=== PATIENT | male | born 1950 | race Caucasian/White ===

== ENCOUNTER 2016-07-22 11:25 | Inpatient (IN) | payer MEDICARE ==
[~2016-07-22] VITALS: Ht 177.8 cm; Wt 115.9 kg
--- NOTE | ~2016-07-22 | CON ---
PATIENT'S NAME: JESSICA DELAGDO [facility] AGE: 66 Y [address] ROOM: [address] [address] LOCATION: [facility] ADMIT DATE: 07/22/2016 Consultation DISCHARGE DATE: FAMILY PHYSICIAN: Margy Tello PA-C ATTENDING PHYSICIAN: MARQUISE TURNER REFERRING PHYSICIAN: RAS GUZMÁN MD REASON FOR CONSULTATION: This is a 66-year-old male who is seen in consultation for evaluation of rectal bleeding. HISTORY OF PRESENTING ILLNESS: This 66-year-old male was admitted with a problem of syncopal episode as a result of which he passed out for half hour. He was brought to the hospital and apparently there was a question of possible choking spells. He has recurrent bouts of cough. It is not clear whether it was a seizure disorder at that time and now he is being treated for possible first-time seizure disorder. He is being seen by Cardiology and Neurology. His brain MRI was negative. Episode of lower GI bleeding was not noted by the patient; however, the nurses noted that there was bright red blood in the toilet and it colored the water in the commode and there were some clots. There was no evidence of melena. The patient denies any abdominal pain, nausea, vomiting, constipation, or diarrhea. He has a history of paroxysmal atrial fibrillation; and therefore he is on Pradaxa, which he had today. ADDITIONAL MEDICAL HISTORY: 1. Type 2 diabetes mellitus. 2. Paroxysmal atrial fibrillation, on Pradaxa. 3. Chronic kidney disease, stage 3 and 4. 4. Recent rotator cuff tear, status post repair on 07/18/2016. 5. Hypertension. 6. 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 FAMILY HISTORY: Stroke in his mother and diabetes mellitus and hypertension. SOCIAL HISTORY: The patient lives at home with his girlfriend. Denies any history of smoking, alcohol use, or drug use. PAST SURGICAL HISTORY: He had colonic resection about 1.5 feet from his left side after "twist in the colon," which I presume was due to volvulus. The record of which is not available. PATIENT'S NAME: JESSICA DELGADO [facility] AGE: 66 Y [address] ROOM: [address] [place], [place] [address] LOCATION: [facility] ADMIT DATE: 07/22/2016 Consultation DISCHARGE DATE: FAMILY PHYSICIAN: Margy Tello PA-C ATTENDING PHYSICIAN: MARQUISE TURNER REVIEW OF SYSTEMS: A 10-point review of system was negative other than mentioned above. PHYSICAL EXAMINATION: GENERAL: Reveals a well-developed, very pleasant male, who is not in acute discomfort. VITAL SIGNS: His blood pressure is 133/71, weight is 120 kg, pulse is 71 per minute, respiration is 12 per minute, and temperature is 98.4 degrees Fahrenheit. HEAD: Normocephalic, atraumatic. NECK: Supple. No lymphadenopathy. JVP is not elevated EYES: PERRLA. CARDIAC: Heart rate is irregular, decreased muffled heart sounds. No S3. Cardiovascular examination as per the Cardiology consultation. CHEST: Clear to palpation, percussion, and auscultation. ABDOMEN: Soft, is nontender, no hepatosplenomegaly. He is obese. Bowel sounds are audible. No ascites. NEUROLOGICAL: Examination briefly is intact and has been seen by the neurologist in detail. LABORATORY DATA: His lab data shows his hemoglobin is 11.9 g, hematocrit 36.9, platelets of 247,000, 58.8% neutrophils. INR is 1.3 and prothrombin time is 13.4. His electrolytes are normal. Glucose is 118, calcium is 7.7, BUN 35, creatinine 1.8, which has come down from 3.2 on July 22, alk phos is 39. AST, ALT are normal. CPK which was 2129, on admission is now 654, this was from rhabdomyolysis. His BNP is at 1550. Hemoglobin A1c is 8. His lumbosacral spine CT scan did not show any traumatic fracture; however, there is degenerative changes in L2-L5. ASSESSMENT: Mr. Delgado has multiple problems, gastrointestinal problem at hand is lower gastrointestinal bleeding, probably secondary to use of Pradaxa, which has been stopped after today's dose. He needs to be further evaluated by colonoscopy, which we will plan to do after 2 days of stopping Pradaxa schedule except Sunday and as much as he is not having massive bleeding therefore it should be done in a planned way for a possible therapeutic colonoscopy, where polypectomy may be possible after stopping Pradaxa for 2 days. He is being well-managed by Cardiology and Neurology and his kidney functions are improving, he is eating well, and has not had any choking episodes of seizures since his hospitalization. We will go ahead and plan for colonoscopy on Sunday. We appreciate sharing care of this patient. PATIENT'S NAME: JESSICA DELGADO [facility] AGE: 66 Y [address] ROOM: [place] [address] LOCATION: [facility] ADMIT DATE: 07/22/2016 Consultation DISCHARGE DATE: FAMILY PHYSICIAN: Margy Tello PA-C ATTENDING PHYSICIAN: MARQUISE TURNER MD DENISE PERKINS/cayla /[id number] CC: Margy Tello PA-C d: 07/26/16 0530 t: 07/29/16 1141, CONSULTATION REPORT
--- NOTE | ~2016-07-22 | HP ---
PATIENT'S NAME: JESSICA RIVAS [facility] AGE: 66 Y [address] ROOM: [place] [address] LOCATION: [facility] ADMIT DATE: 07/22/2016 History & Physical DISCHARGE DATE: FAMILY PHYSICIAN: PHYSICIAN, UNKNOWN ATTENDING PHYSICIAN: MARQUISE TURNER DATE OF SERVICE: CHIEF COMPLAINT: New onset of seizures and syncope. HISTORY OF PRESENT ILLNESS: This is a 66-year-old male, with history of diabetes, hypertension, and history of stroke in 2009 with residual right-sided weakness, who is transferred from an outside facility after he is found to have a seizure episode while in-house. It is reported that patient is not known to have clearly diagnosed seizure disorder. According to the staff at the facility, it was noted that patient had what appeared to be a seizure-like activity for a few minutes while having breakfast this morning and was obtunded for about 15 minutes following that. There were no reports of a witnessed tonic-clonic jerking type movement in relation to this. Upon my conversation with the patient today, he tells me that he does have frequent episodes of passing out without any clear signs of prodromal symptoms and the episode that occurred today is very much similar to what he has been experiencing for quite often for several months. The patient also reports that typically this syncopal episodes are exacerbated by a coughing spell which mostly occurs while he is having a meal. The patient, otherwise, denies any related chest pain, shortness of breath, lightheadedness, nausea, vomiting, or diaphoresis related to these spells. He does report a chronic cough that is nonproductive. Also denies any chest pain symptoms. PAST MEDICAL HISTORY: 1. Type 2 diabetes. 2. Paroxysmal atrial fibrillation, on Pradaxa. 3. Chronic kidney disease, stage 3 or 4. 4. Recent rotator cuff tear status post repair on 07/18/2016. 5. Hypertension. 6. History of CVA in 2009 with residual right-sided weakness in the lower extremity. FAMILY HISTORY: The patient has a history of stroke in his mother as well as diabetes and hypertension. SOCIAL HISTORY: PATIENT'S NAME: JESSICA RIVAS [facility] AGE: 66 Y [address] ROOM: [address] [place] [address] LOCATION: [facility] ADMIT DATE: 07/22/2016 History & Physical DISCHARGE DATE: FAMILY PHYSICIAN: PHYSICIAN, UNKNOWN ATTENDING PHYSICIAN: MARQUISE TURNER The patient lives at home with his girlfriend. Denies any history of smoking daily, alcohol use or drug use. REVIEW OF SYSTEMS: A 10-point review of systems was conducted and all were negative except as described in the HPI. PHYSICAL EXAMINATION: VITAL SIGNS: Blood pressure is 140/74, pulse is 78, respiratory rate 16, temperature 98.1, and saturating 95% on room air. GENERAL: The patient is awake, alert, and oriented x3 in no apparent distress. Obese appearing. HEENT: Moist mucous membranes. No scleral icterus. No conjunctival pallor noted. SKIN: Without rash or lesions. CHEST: Diminished breath sounds, but clear to auscultation bilaterally. HEART: S1 and S2. Regular rate and rhythm. ABDOMEN: Soft, nontender, and nondistended with positive bowel sounds. EXTREMITIES: Without edema. MUSCULOSKELETAL: Right shoulder in a sling from a recent rotator cuff repair surgery. LABORATORY DATA AND IMAGING STUDIES: Outside laboratories of significance: Creatinine of 3.2. Baseline appears to be around 3.0. CPK is 2735. ASSESSMENT AND PLAN: 1. Seizure, new onset. Apparently, a 15-minute long duration of postictal state to report from the nursing staff. No tonic-clonic type of movements witnessed, however. It appears that patient has a history of passing-out spells such as this frequently. In any case, the patient does require an evaluation for a new-onset seizure noting his prior history of strokes and does have risk factors for that. The patient has not had any seizure-like activities since 7:45 a.m. at this facility. The patient is awake, alert, and oriented x3 during my evaluation. I will ask for a Neurology consult for evaluation and recommendations. The patient has had a CT scan and MRI done at the outside facility as well and I am asking for reports for that. 2. Syncope, rule out cardiac etiology. The patient states that he does have frequent passing-out spells over the past several weeks including one time while he was driving in the past 6 months or so. The patient does have a history of atrial fibrillation and the risk factors for coronary artery disease. The patient sees a research group director from [place] and his last visit was in the beginning of June, this past month. We will consult Cardiology, also get a 2D echocardiogram for evaluation of his PATIENT'S NAME: JESSICA RIVAS [facility] AGE: 66 Y [address] ROOM: [address] [place], [place] [address] LOCATION: [facility] ADMIT DATE: 07/22/2016 History & Physical DISCHARGE DATE: FAMILY PHYSICIAN: PHYSICIAN, UNKNOWN ATTENDING PHYSICIAN: MARQUISE TURNER syncope noting his risk factors for a cardiac syncope. 3. Acute kidney injury on chronic kidney disease, stage 4. Baseline appears to be around 3.0, the creatinine is 3.2 from the last blood draw. We will recheck his renal function and monitor his input and output. Also avoid nephrotoxic drugs as well as any renally cleared medications as much as possible. 4. Paroxysmal atrial fibrillation. The patient is on Pradaxa as an outpatient. Noting his stage 4 kidney disease, we will hold Pradaxa and re-evaluate kidney function. It is likely that the patient's renal failure is to be a contraindication for the Pradaxa to be continued from here on as Pradaxa is not recommended in patients with glomerular filtration rate of less than 30. Coumadin would be a good alternative in this setting. We will await Cardiology input and re-evaluate. 5. Rhabdomyolysis. CPK of 2735. This could be adding to the acute on chronic kidney disease injury. We will give some IV fluids and follow CPK levels. 6. Deep venous thrombosis prophylaxis. We will use subcutaneous heparin while awaiting on a decision on what alternate agent to use for long-term anticoagulation. MD KEMAL SHIN/cayla /[id number] D: [id number] T: [id number] HISTORY & PHYSICAL
--- NOTE | ~2016-07-22 | ECHO ---
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 Summary The estimated left ventricular ejection fraction is 60%. Technically difficult study. Severe concentric left ventricular hypertrophy. Diastolic function indeterminate due to patient's arrhythmia. Mild tricuspid regurgitation by color Doppler. There is moderate pulmonary hypertension. The pulmonary pressure (RVSP) is 52 mmHg. Procedure Type of Study TTE procedure:2D Echocardiogram. Procedure Date Date: 07/22/2016 Start: 04:31 PM Study Location: Inpatient Portable Technical Quality: Adequate visualization Indications:Syncopal Episode. Additional Indications:Seizure Appropriate Use Criteria: 8 Patient Status: Routine HR: 83 bpm BP: 151/74 mmHg M-Mode/2D Measurements LV Diastolic Dimension: 4.62 cm LV Systolic Dimension: 3.28 cm LV Septum Diastolic: 1.98 cm LV PW Diastolic: 1.6 cm AO Root Dimension: 3.3 cm Cardiac Output: 5.26 l/min AV Cusp Separation: 2.1 cm RV Diastolic Dimension: 3.6 cm LA volume: 50 ml LVOT: 2.1 cm RV Base: 3.29 cm LVOT VTI: 18.3 cm RV Mid: 4.03 cm LV Stroke volume: 63.35 ml TAPSE: 2.25 cm TDI-S': 13.2 cm/s Doppler Measurements AV Peak Velocity: 0.91 m/s MV Peak E-Wave: 1.21 m/s AV Peak Gradient: 3.28 mmHg MV Peak A-Wave: 0.32 m/s AV Mean Gradient: 2 mmHg MV E/A Ratio: 3.73 LVOT Peak Velocity: 0.74 m/s MV P1/2t: 59 msec TR Gradient:41.99 mmHg PV Peak Velocity: 0.74 m/s Estimated RAP:5 mmHg PV Peak Gradient: 2.17 mmHg Estimated RVSP: 47 mmHg Estimated PASP: 46.99 mmHg E' Septal Velocity: 0.07 m/s A' Septal Velocity: 0.03 m/s E' Lateral Velocity: 0.13 m/s A' Lateral Velocity: 0.06 m/s Findings Left Ventricle Severe concentric left ventricular hypertrophy. Diastolic function indeterminate due to patient's arrhythmia. Right Ventricle Mildly dilated right ventricle with normal function. Left Atrium The left atrium is mildly dilated. There is no evidence of patent foramen ovale or atrial septal defect by color Doppler. Right Atrium The right atrium is mild to moderately dilated. IVC measures 2.41 cm with inspiratory collapse. Mitral Valve Trivial mitral regurgitation by color Doppler. Mild mitral annular calcification. Aortic Valve Difficult to visualize all three cusps of the aortic valve. Based on M-mode aortic valve appears to be trileaflet without the presence of an eccentric closure line. Tricuspid Valve Mild tricuspid regurgitation by color Doppler. There is moderate pulmonary hypertension. The pulmonary pressure (RVSP) is 52 mmHg. Pulmonic Valve Normal pulmonic valve structure and function. Pericardial Effusion No evidence of pericardial effusion. Miscellaneous The aortic root appears mildly dilated. The maximum diameter measures 3.3 cm. The ascending aorta appears mildly dilated. The maximum diameter measures 3.7 cm. Pleural Effusion No evidence of pleural effusion. Contractility Score LV regional wall motion:(0-Non visualized 1-Normal 2-Hypokinesis 3-Akinesis 4-Dyskinesis 5-Aneurysm) Signature dtt: Amado Adams dtd: 07/22/16 1631 Physician Self Edit
--- NOTE | ~2016-07-22 | DS ---
PATIENT'S NAME: JESSICA RIVAS [facility] AGE: 66 Y [address] ROOM: [place] [address] LOCATION: [facility] ADMIT DATE: 07/22/2016 Discharge Summary DISCHARGE DATE: 08/01/2016 FAMILY PHYSICIAN: Margy Tello PA-C ATTENDING PHYSICIAN: Bear Plaza PRINCIPAL DIAGNOSES: 1. Seizure. 2. Acute lower gastrointestinal bleed, resolved, with questionable mild proctitis, biopsy pending. 3. Chronic atrial fibrillation, on long-term anticoagulation. 4. Diabetes mellitus type 2, insulin dependent. 5. Essential hypertension. 6. Recent right rotator cuff repair. 7. 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 8. Obstructive sleep apnea, on CPAP. 9. History of a cerebrovascular accident. 10. Thoracic aortic aneurysm. HOSPITAL COURSE: Please reference any of the admitting data to the history and physical as dictated by Dr. Bear Plaza. Briefly, a 66-year-old male who had undergone a recent right rotator cuff repair, had been having coughing fits and tremoring, was taken to the emergency room where he was witnessed to have seizure-like activity followed by unresponsiveness, thought to be postictal state, was transferred to [facility] for further evaluation and management. He was admitted by our hospitalist and started on Keppra. An MRI of his brain was completed and did not show any new acute findings. Neurologic consultation was done with Dr. Hardeep Hernandez. An EEG was done that did not show any epileptic forms. Keppra was continued and no recurrence of seizures occurred while during his hospitalization. The patient also had been complaining of these coughing fits and they were observed while hospitalized. They were considered to be dry and persistent. His VALENTINE inhibitor was stopped on 07/24 and the coughing episodes ceased since. He did require a Cardiology consultation and evaluation given these episodes. Orthostatics were checked and they were mildly positive; however, felt stable. His blood pressure regimen was adjusted with the addition of Cozaar and adjusting the administration time of his current medications. His pressures were rather labile during his stay, sometimes ranging between 90s to 200s. He did require p.r.n. IV hydralazine, but had steadied out over the last 48 hours of his stay with systolic blood pressures consistently 120s to 150s and controlled heart rates. Further evaluation by echocardiogram showed no acute PATIENT'S NAME: JESSICA RIVAS [facility] AGE: 66 Y [address] ROOM: [id number] [place], [place] [address] LOCATION: [facility] ADMIT DATE: 07/22/2016 Discharge Summary DISCHARGE DATE: 08/01/2016 FAMILY PHYSICIAN: Margy Tello PA-C ATTENDING PHYSICIAN: Bear Plaza findings. He had a sustained left ventricular ejection fraction of 60% with severe concentric left ventricular hypertrophy and moderate pulmonary hypertension, but not thought to be the cause of his syncope. His chronic atrial fibrillation was rate controlled and observed on telemetry during his stay without complication. The patient was on long-term anticoagulation, Pradaxa, renally dosed. It was, however, noted that the patient had bloody stool on July 24. Hemoglobin was stable in the 11 and 12 range, but because of his need for long-term anticoagulation, it was elected to have a consultation with Gastroenterology. It was elected that he undergo a colonoscopy, which showed possible proctitis, biopsy was pending. He also showed external hemorrhoids, which was thought to be the cause of the bleeding. He was then resumed on his Pradaxa, renal dose, and tolerated it fine for the remainder of his stay. His hemoglobin stabilized, and no further concerns of bleeding. As for his diabetes, it was managed by an adjustment of his home regimen given his oral intake and activity. He was placed on an insulin:carb ratio and sliding scale with meals. He was started on Levemir twice a day and titrated accordingly. He was monitored on blood glucose checks before each meal and at bedtime. He did have a couple morning lows in the last 48 hours, in the 50s and 60s, but rebounded with oral intake and showed no complication. At the time of discharge, his evening dose of Levemir was cut back from 20 to 15 units. Diabetes Education also followed along and assisted in the plan and education of the patient for dietary and insulin needs. The patient initially presented with a creatinine of 3.2, suspected acute kidney injury. This was corrected with oral and IV fluid intake. His medications were renally dosed, and we saw his creatinine improved to 1.6 and 1.7 respectively for the remainder of his stay and this was felt to be around his baseline of CKD 3-4. He was given adequate pain control for his right shoulder with alternating Dilaudid and Ashmore. He was mobilized with physical and occupational therapy with restorative plan. DVT prophylaxis was maintained with Pradaxa. The short time that the patient was off his oral anticoagulation, we utilized pneumatic compression devices and early often mobilization. The patient had a portable chest x-ray that showed us concerns for widening of his mediastinum. The patient does have a known history of thoracic aortic aneurysm, in which he had undergone repair some previous time, but because of the concern, he underwent a CT scan of his chest without contrast and it did confirm that the widening was secondary to the ascending thoracic aorta measuring approximately 4.3 cm. He was also noted with ectasia and showed evidence of dissection at the descending point. Dr. Mccoy, the cardiothoracic surgeon, reviewed the films and all appeared chronic in nature. PATIENT'S NAME: JESSICA RIVAS [facility] AGE: 66 Y [address] ROOM: [address] [address] LOCATION: [facility] ADMIT DATE: 07/22/2016 Discharge Summary DISCHARGE DATE: 08/01/2016 FAMILY PHYSICIAN: Margy Tello PA-C ATTENDING PHYSICIAN: Bear Plaza He had no symptoms to be concerned of need of urgent repair or intervention. Recommendations for blood pressure control were made and a followup with Vascular Surgery as well as the need for a post-contrast CT to further evaluate the aneurysm/dissection in the near future. The patient was felt to be in good condition upon discharge, but it was elected that he continue to have restorative care and observation of his medical conditions. Care Management and Social Work arranged for transfer to swing bed by private auto on the day of discharge. LABORATORY DATA: Pertinent positives as described above. Cardiac enzymes showed an initial CPK of 2129 showing concerns for early rhabdomyolysis. This resolved in the next trended checks over the next 2 days with a CPK of 654. Remaining of cardiac markers were negative. CBC was unremarkable, most recent being on 07/30 showed a white blood cell count of 7.3, hemoglobin of 12.7, hematocrit of 39.4, and a platelet count of 308. Chemistry panel on 07/31 showed a glucose of 62, a BUN of 25, a creatinine of 1.7 down from 3.2 on admission, sodium 140, potassium 4.8, chloride of 107, a CO2 of 23, a calcium of 8.6, and a GFR of 40, up from 19. Hemoglobin A1c was 8.0. INR was 1.3. ANATOMIC PATHOLOGIC REPORTS: Rectal sigmoid biopsy is now final, showed reactive glandular change, negative for cryptitis and crypt abscess. RADIOLOGIC IMAGING: MRI of the brain on July 23 showed no acute findings. A chest x-ray on July 25 had showed concerns of mediastinal widening. A followup chest CT without contrast had shown the thoracic aortic aneurysm with vessel ectasia and evidence for dissection involving the thoracic and upper abdominal portions of the aorta, likely accounting for the mediastinal widening on the chest x-ray. Also on the CT scan, there was noted patchy areas of parenchymal opacity in the left and right lung apex. There was dependent atelectasis at the lung bases. There was cardiac enlargement with coronary calcifications. Past thoracic surgery with surgical clips noted. There was left nephrolithiasis. EEG showed evidence of underlying cortical dysfunction in the left hemisphere with mild to moderately severe diffuse encephalopathy. There was no epileptic form discharges or EEG seizures that were seen during the recording taken on July 24. DISCHARGE MEDICATIONS: 1. Amiodarone 200 mg p.o. every day. 2. To stop lisinopril. 3. Amlodipine 5 mg p.o. every day at 1700 hours, hold if systolic blood pressure is less than 110. 4. Carvedilol 25 mg p.o. twice daily, hold for systolic blood pressure less PATIENT'S NAME: JESSICA RIVAS [facility] AGE: 66 Y [address] ROOM: [id number] [place], [place] [address] LOCATION: [facility] ADMIT DATE: 07/22/2016 Discharge Summary DISCHARGE DATE: 08/01/2016 FAMILY PHYSICIAN: Margy Tello PA-C ATTENDING PHYSICIAN: Bear Plaza than 110 and heart rate less than 60. 5. Prozac 40 mg p.o. every day. 6. Gabapentin 300 mg p.o. 3 times daily. 7. Hydrochlorothiazide 25 mg p.o. every day, hold if systolic blood pressure is less than 110. 8. NovoLog insulin as per mild sliding scale subcutaneous before meals and at bedtime. 9. NovoLog insulin 1 unit per 15 g subcutaneous 3 times daily with meals, with a carb count of 1-15 g of carbohydrates consumed. 10. Levemir 20 units subcutaneous every a.m. 11. Levemir 15 units subcutaneous every p.m. 12. Keppra 500 mg p.o. every evening at 2100 hours. 13. Rosa M 60 mg p.o. every day. 14. Cozaar 50 mg p.o. every night at bedtime, to hold if systolic blood pressure is less than 110. 15. Singulair 10 mg p.o. every night at bedtime. 16. Protonix 40 mg p.o. every day. 17. Flomax 0.4 mg p.o. every day. 18. Ashmore 5/325 mg tablets, 1 tablet p.o. every 6 hours as needed for mild- to-moderate pain. Prescription written. 19. Glucagon 1 mg subcutaneous for hypoglycemia as needed per protocol. 20. Glucose 16 g p.o. as needed for hypoglycemia as per protocol. 21. Dilaudid 1 mg p.o. every 4 hours as needed for severe pain, . Prescription written. 22. MiraLAX 17 g p.o. every day as needed. 23. Afrin spray 2 sprays to each nostril every night at bedtime as needed. 24. TriCor 160 mg p.o. every day. 25. Pradaxa 150 mg p.o. twice daily. 26. Zantac 150 mg p.o. twice daily. DISCHARGE INSTRUCTIONS: The patient will be discharged to [facility] by private auto. The accepting physician is Dr. Chaney whom I spoke with on the phone. The patient will require multiple followups to include: 1. Orthopedics given the patient's most recent right rotator cuff repair within the next week. 2. His primary [employer] operations intelligence officer in [place] in the next 2 weeks. 3. His primary vascular physician in [place], the next time he is there. 4. Gastroenterology at [facility] in the next [address] Hernandez with Neurology at [facility] within the next 1 to 2 weeks. In addition to the vascular followup, our recommendations would be to have a CT scan of his chest with contrast in 1 month for further evaluation of his thoracic aortic aneurysm and to collaborate with Cardiothoracic Surgery based upon the findings of the CT scan. PATIENT'S NAME: JESSICA RIVAS [facility] AGE: 66 Y [address] ROOM: [id number] [place], [place] [address] LOCATION: [facility] ADMIT DATE: 07/22/2016 Discharge Summary DISCHARGE DATE: 08/01/2016 FAMILY PHYSICIAN: Margy Tello PA-C ATTENDING PHYSICIAN: Bear Plaza Diet should be as tolerated, diabetic. Weightbearing status is as tolerated or restrictions to the right shoulder as previously mentioned by Orthopedics, right sling to be in place at all times or unless otherwise advised. Occupational and Physical Therapy to continue to evaluate and treat the patient. He is to wear CPAP at night when he is asleep. Oxygen saturations should remain greater than 90% and if requiring oxygen to be placed as needed. Laboratory values should be followed. A complete blood count and complete metabolic panel to be taken within the next 3 to 4 days for evaluation as well as blood sugars before each meal and at bedtime and as needed as per their protocol. His rehab potential is good. His discharge potential is good. The patient and the family are well aware of his condition and prognosis. The above line of management was discussed with the patient and his spouse, all questions were answered with statements of understanding. Total time arranging discharge was greater than 30 minutes. Thank you for allowing us to participate in the care of this patient while at [facility]. MILLY MORA APRN, APRN FOR MD SÁNCHEZ BUTCHER/cayla /[id number] CC: MD Keyonna Jimenez MD [address] [place] [address] d: t: 08/02/16 1031, DISCHARGE SUMMARY
--- NOTE | ~2016-07-22 | CON ---
PATIENT'S NAME: JESSICA RIVAS [facility] AGE: 66 Y [address] ROOM: [place] [id number] LOCATION: [facility] ADMIT DATE: 07/22/2016 Consultation DISCHARGE DATE: FAMILY PHYSICIAN: Margy Tello PA-C ATTENDING PHYSICIAN: MARQUISE TURENR DATE OF CONSULTATION: 07/22/2016 REFERRING PHYSICIAN: RAS GUZMÁN MD REASON FOR CARDIOLOGY CONSULT: Syncope. HISTORY OF PRESENT ILLNESS: This is a 66-year-old male, who is transferred to [facility] after having a syncopal episode with subsequent seizure-like episode. He states he has been having increased episodes of syncope, specifically during meals and after a cough. From chart review, there was no witnessed tonic- colonic seizure type activity. He does have a previous history of hypertension, diabetes mellitus, and stroke in 2009 with some right-sided weakness. At the time of this consult, he is resting comfortably with no complaints of chest pain, shortness of breath, palpitations, nausea, vomiting, or diarrhea. PAST MEDICAL HISTORY: 1. Paroxysmal atrial fibrillation with long-term anticoagulation with Pradaxa. 2. Hypertension. 3. History of stroke in 2009 with residual right-sided weakness. 4. Diabetes mellitus type 2. 5. Chronic kidney disease. PAST SURGICAL HISTORY: 1. Right ankle surgery. 2. Right shoulder surgery. 3. Aneurysm repair in his chest. 4. Cholecystectomy. 5. Appendectomy. 6. Colon resection. 7. Right rotator cuff in June of 2016, due to this, his arm is currently in a sling. 8. Thyroid disease. FAMILY HISTORY: The patient's mother had a history of heart disease. He has a sister with a history of diabetes and hypertension. PATIENT'S NAME: JESSICA RIVAS [facility] AGE: 66 Y [address] ROOM: [address] [address] LOCATION: [facility] ADMIT DATE: 07/22/2016 Consultation DISCHARGE DATE: FAMILY PHYSICIAN: Margy Tello PA-C ATTENDING PHYSICIAN: MARQUISE TURNER SOCIAL HISTORY: The patient denies ever using tobacco. He also denies alcohol or illicit drug use. CURRENT MEDICATIONS: 1. Coreg 25 mg p.o. twice daily. 2. Neurontin 300 mg p.o. 3 times daily. 3. Singulair 10 mg p.o. daily in the evening. 4. Levemir 27 units subcu daily in the evening. 5. NovoLog subcu on a mild sliding scale per a.c. and h.s. Accu-Cheks. ALLERGIES: COUMADIN CAUSING A BODY RASH. REVIEW OF SYSTEMS: Pertinent positive review of systems listed in the HPI. All other review of systems evaluated and negative. PHYSICAL EXAMINATION: VITAL SIGNS: Temperature 98.1, pulse 75, respirations 16, blood pressure 151/74, O2 saturation 97% on 2 L nasal cannula. The patient weighs 117.8 kg. SKIN: Volin, warm, and dry. EYES: Sclerae clear. No xanthelasmas. ENT: Oral mucosa is pink and moist. No jugular venous distention or carotid bruits. CHEST: Respirations are even and unlabored. Lung sounds are clear to auscultation. HEART: Irregular rate and rhythm. Normal S1, S2. He is currently in an atrial fibrillation on his home help aide. No murmurs, rubs, or gallops. ABDOMEN: Soft and nontender. MUSCULOSKELETAL: Does have noted right-sided specifically lower extremity weakness against resistance, and his right upper extremity is noted to be in a sling from his rotator cuff surgery. EXTREMITIES: Peripheral pulses palpable. No clubbing or cyanosis noted. Does have trace lower extremity edema present. PSYCH: Alert and oriented. Mood and affect are appropriate. IMPRESSION AND PLAN: Per Dr. Adams: 1. Loss of consciousness with possible seizure. 2. History of stroke. 3. Chronic atrial fibrillation with long-term anticoagulation with Pradaxa. 4. Diabetes mellitus type 2. 5. Obesity. PATIENT'S NAME: JESSICA RIVAS [facility] AGE: 66 Y [address] ROOM: [place] [address] LOCATION: [facility] ADMIT DATE: 07/22/2016 Consultation DISCHARGE DATE: FAMILY PHYSICIAN: Margy Tello PA-C ATTENDING PHYSICIAN: MARQUISE TURNER 6. Recent right-sided rotator cuff surgery. 7. Acute kidney injury. 8. Hypertension. His EKG shows a possible inferior wall myocardial infarction. We will check an echocardiogram to fully evaluate ejection fraction as well as look for wall motion and valvular abnormalities. We will follow laboratory evaluations closely with a BMP, cardiac enzymes, and a proBNP as well as check another EKG in a.m. Pradaxa is an appropriate medication for his atrial fibrillation and his renal dysfunction without dialysis, so we will continue that at 75 mg p.o. twice daily. We will continue to monitor, evaluate, and treat as appropriate. Thank you for this consult. Thank you for allowing [facility] to interact in the care of this patient. ASTRID GARCIA APRN FOR RENAES-MD ALEXANDER SCHAEFFER/modesteban /[id number] d: 07/23/16 1844 t: 08/03/16 1551, CONSULTATION REPORT
--- NOTE | ~2016-07-22 | NDGEN ---
PATIENT'S NAME: ROB [facility] AGE: 66 Y [address] ROOM: [place] [address] LOCATION: [facility] ADMIT DATE: 07/22/2016 Neurodiagnostics DISCHARGE DATE: FAMILY PHYSICIAN: Margy Tello PA-C ATTENDING PHYSICIAN: MARQUISE TURNER PROCEDURE: ELECTROENCEPHALOGRAM DATE OF PROCEDURE: 07/24/2016 TEST: TECH: CLINICAL DIAGNOSIS: DURATION OF EE minutes. REASON FOR EEG: Seizures and syncope. CLINICAL HISTORY: The patient is a 66-year-old male with history of diabetes, hypertension, and stroke in 2009 with residual right-sided weakness. EEG FINDINGS: The patient is awake for majority of the EEG. During the awake portion of the EEG, a background of about 7 to 8 hertz is seen in the posterior head regions. There is some asymmetry between the right and left hemisphere with the left hemisphere being slow when compared to the right side. Activation procedures included photic stimulation between 3 to 30 hertz, which did not show any abnormalities. No epileptiform discharges or EEG seizures were seen during this recording. CLASSIFICATION: Abnormal III, awake, drowsy 10/20 scalp electrodes. 1. Asymmetry slow left hemisphere. 2. Background slow. IMPRESSION: This EEG shows evidence of underlying cortical dysfunction in the left hemisphere. That is evidence for mild to moderately severe diffuse encephalopathy. No epileptiform discharges or EEG seizures were seen during this recording. MEKHI GARCÍA MD YANET/modl PATIENT'S NAME: JESSICA RIVAS [facility] AGE: 66 Y [address] ROOM: [place] [address] LOCATION: [facility] ADMIT DATE: 07/22/2016 Neurodiagnostics DISCHARGE DATE: FAMILY PHYSICIAN: Margy Tello PA-C ATTENDING PHYSICIAN: MARQUISE TURNER /[id number] dtt: 07/31/16 1021 , MEKHI GARCÍA dtd: 07/25/16 1342
--- NOTE | ~2016-07-22 | CON ---
PATIENT'S NAME: JESSICA DELGADO [facility] AGE: 66 Y [address] ROOM: [place] [address] LOCATION: [facility] ADMIT DATE: 07/22/2016 Consultation DISCHARGE DATE: FAMILY PHYSICIAN: Margy Tello PA-C ATTENDING PHYSICIAN: MARQUISE TURNER DATE OF CONSULTATION: 07/23/2016 REFERRING PHYSICIAN: RAS GUZMÁN MD The patient was seen in neurologic consultation on 07/23/2016 at 4 p.m. HISTORY OF PRESENT ILLNESS: Mr. Delgado is a 66-year-old male patient with history of diabetes and renal insufficiency. Baseline creatinine is usually in the level between 2-3. The patient lives at home with a girlfriend for 6 years. The patient and girlfriend reports that Mr. Delgado has occasional events of coughing fits. His coughing fits can occur with food or drink or sometimes even without any food. 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 Other times, his coughing can come on spontaneously also. The patient was in his usual state of health and was dealing with an issue of right shoulder pain. He ended up going to the hospital in [place], [place] and then was in an adjacent building where he was being treated for pain of the shoulder. During the morning yesterday, he was about to eat an egg at breakfast and suddenly had coughing upon eating the egg. It did not seem to be associated with food that got stuck in his throat and he did not actually have problems that was associated with choking. His coughing instead of stopping became worse and he apparently turned a bit of purple in his skin. This has not been unknown for him to do this in the past. His was there and actually witnessed as well as other personal witnessed him having an event of loss of consciousness along with shaking of his upper extremities. Most significant after this event, he was unresponsive for nearly one-half hour. There did not appear to be any biting of his tongue or loss of bowel or bladder function, but again the patient only remembers waking up at least a half hour later and this was confirmed by the . There was a physician there who did think that this was significant for tonic-clonic seizure. The patient was taken here to our hospital and he has been observed for the course of the day and into this morning and he has not had any new events of coughing fits. PRIOR MEDICAL HISTORY: Diabetes type 2. He had a small stroke back in 2009 which is not obviously visible on the MRI done here. He has chronic renal insufficiency and he is chronically in atrial fibrillation. He is on Pradaxa for this. His heart rate are usually in 60s to 70s and atrial fibrillation. He also has a history PATIENT'S NAME: JESSICA DELGADO [facility] AGE: 66 Y [address] ROOM: [address] [address] LOCATION: [facility] ADMIT DATE: 07/22/2016 Consultation DISCHARGE DATE: FAMILY PHYSICIAN: Margy Tello PA-C ATTENDING PHYSICIAN: MARQUISE TURNER of hypertension. SOCIAL HISTORY: As mentioned, he lives with girlfriend for 6 years. He has no children. He is retired. 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 FAMILY HISTORY: His mother had diabetes along with 2 sisters. His mother also had coronary artery disease and strokes. REVIEW OF SYSTEMS: Endocrine saldaña, the patient has diabetes type 2. He has renal insufficiency associated with long-standing diabetes. He has past history of a stroke which had given him a history of right-sided weakness, but he does not have any weakness for many years. There is no evidence of an old stroke on MRI. The rest of review of systems as discussed in the HPI. PHYSICAL EXAMINATION: GENERAL: This is an obese male patient who is alert and oriented. His speech is clear. Language abilities are normal. VITAL SIGNS: Showed a pulse of 68 and irregular, respiration rate 12, blood pressure 127/86, and temperature is afebrile. NEUROLOGIC: Cranial nerves 2 through 12 was intact. His motor exam revealed normal power of 5/5 grade in the proximal and distal muscles of the upper and lower extremities. There is no pronator drift and normal tone in the arms and legs. Reflexes symmetric at +1 at the biceps, absent at the triceps, absent patellar and absent ankle jerks. His plantar reflexes in neutral. The patient's gait is narrow base. Negative Romberg. Rapid alternating hand movements are normal. There is no pronator drift. IMPRESSION: It is quite possible that the patient did have a syncope event associated with coughing fits, however, certainly his odd about this was the very prolong period of time having lost consciousness up to one-half hour. This was seen in consistent with a syncope. The witnessed shaking of the limbs before passing out is not necessarily associated with the stroke, but the aspect of having these events in the past with passing out or isolated without passing out does suggest that the coughing events are focal seizures in themselves and sometime can result in generalized seizures. Thus from the standpoint of this likely being a focal seizure with generalization, I do feel he should be placed on an antiseizure medication. We will start the patient on Keppra 500 mg daily. We will keep this at the low-dose based upon his renal insufficiency. Normally, the medication would be dosed up to twice a day between 500 mg twice a day to 1000 mg twice a day. I do believe again the 500 mg a day would be sufficient for him. We should get a baseline EEG even PATIENT'S NAME: JESSICA DELGADO [facility] AGE: 66 Y [address] ROOM: [place] [address] LOCATION: [facility] ADMIT DATE: 07/22/2016 Consultation DISCHARGE DATE: FAMILY PHYSICIAN: Margy Tello PA-C ATTENDING PHYSICIAN: MARQUISE TURNER though the patient does not have any new seizure activity at this point. The patient is in full agreement with this plan. MD ESHA NAZARIO/cayla /[id number] d: 07/23/16 2353 t: 07/25/16 1604, CONSULTATION REPORT
[2016-07-22] MEDS ORDERED: ALLEGRA60 MG PO (15:05)
[2016-07-22] MEDS ORDERED: AFRIN) (GENASAL15 ML NOSE (15:05)
[2016-07-22] MEDS ORDERED: CORDARONE,PACE200 MG PO (15:05)
[2016-07-22] MEDS ORDERED: TRICOR 160 MG160 MG PO (15:06)
[2016-07-22] MEDS ORDERED: NORVASC5 MG PO (15:06)
[2016-07-22] MEDS ORDERED: COREG25 MG PO (15:06)
[2016-07-22] MEDS ORDERED: FLOMAX0.4 MG PO (15:07)
[2016-07-22] MEDS ORDERED: PROZAC40 MG PO (15:07)
[2016-07-22] MEDS ORDERED: NEURONTIN300 MG PO (15:07)
[2016-07-22] MEDS ORDERED: PRINIVIL (ZESTR20 MG PO (15:08)
[2016-07-22] MEDS ORDERED: SINGULAIR10 MG PO (15:08)
[2016-07-22] MEDS ORDERED: HYDRODIURIL25 MG PO (15:08)
[2016-07-22] MEDS ORDERED: PRADAXA150 MG PO (15:09)
[2016-07-22] MEDS ORDERED: NORCO 5-325 TA1 EACH PO (15:09)
[2016-07-22] MEDS ORDERED: PROTONIX40 MG PO (15:09)
[2016-07-22] MEDS ORDERED: RANITIDINE HCL150 M1 PO (15:10)
[2016-07-22] MEDS ORDERED: LANTUS SOL100 UNIT/1 SUB-Q ×2 (15:10→15:12)
[2016-07-22] MEDS ORDERED: NOVOLOG FL100 UNIT/1 SUB-Q ×2 (15:13→15:14)
[2016-07-22 16:44] LABS: BASOPHIL % 0.3 %; EOSINOPHIL # 0.3 K/uL (0.0-0.5); EOSINOPHIL % 3.4 %; HEMATOCRIT 41.1 % (37.0-53.0); HEMOGLOBIN 12.9 g/dL (11.0-16.0); IMMATURE GRANULOCYTE % 0.4 %; LYMPHOCYTE % 11.2 %; MCH 29.1 pg (27.0-34.0); MCHC 31.4 gm/dL (32.0-36.5); MCV 92.8 fl (83.0-98.0); MONOCYTE % 10.3 %; MPV 10.6 fl (9.4-12.4); NEUTROPHIL # (ANC) 6.9 K/uL (1.4-9.0); NEUTROPHIL % 74.4 %; NRBC % 0 /100WBC (0-0.00); PLATELET COUNT 229 K/uL (150-450); RBC 4.43 M/uL (3.50-5.50); RDW-CV 14.6 % (11.9-14.6); WBC 9.3 K/uL (4.0-11.0)
[2016-07-22 16:50] LABS: INR - (THERAPEUTIC) 1.3 (0.9-1.1); PROTIME 13.4 SECONDS (9.6-11.1)
[2016-07-22 17:01] LABS: CALCIUM 8.3 mg/dL (8.5-10.5); CREATININE 3.2 mg/dL (0.6-1.3); PHOSPHORUS 3.2 mg/dL (2.5-4.9)
[2016-07-22 17:02] LABS: MAGNESIUM 2.8 mg/dL (1.3-2.6)
[2016-07-23 05:00] LABS: BASOPHIL % 0.3 %; EOSINOPHIL # 0.5 K/uL (0.0-0.5); EOSINOPHIL % 5.7 %; HEMATOCRIT 38.3 % (37.0-53.0); HEMOGLOBIN 12.3 g/dL (11.0-16.0); IMMATURE GRANULOCYTE % 0.5 %; LYMPHOCYTE # 0.9 K/uL (0.8-4.0); MCH 29.3 pg (27.0-34.0); MCHC 32.1 gm/dL (32.0-36.5); MCV 91.2 fl (83.0-98.0); MONOCYTE % 11.2 %; MPV 10.7 fl (9.4-12.4); NEUTROPHIL # (ANC) 6.1 K/uL (1.4-9.0); NEUTROPHIL % 71.3 %; NRBC % 0 /100WBC (0-0.00); PLATELET COUNT 233 K/uL (150-450); RDW-CV 14.4 % (11.9-14.6); WBC 8.6 K/uL (4.0-11.0)
[2016-07-23 05:22] LABS: ALBUMIN 2.6 gm/dL (3.5-5.0); ANION GAP 13.7 (10.0-19.0); CALCIUM 7.9 mg/dL (8.5-10.5); CREATININE 2.4 mg/dL (0.6-1.3); MAGNESIUM 2.6 mg/dL (1.3-2.6); PHOSPHORUS 2.5 mg/dL (2.5-4.9); POTASSIUM 3.7 mMol/L (3.7-5.1)
[2016-07-23 05:47] LABS: CPK 1482 IU/L (35-332)
[2016-07-24 04:47] LABS: BASOPHIL % 0.4 %; EOSINOPHIL # 0.6 K/uL (0.0-0.5); EOSINOPHIL % 8.1 %; HEMATOCRIT 38.7 % (37.0-53.0); HEMOGLOBIN 12.2 g/dL (11.0-16.0); IMMATURE GRANULOCYTE % 0.3 %; LYMPHOCYTE # 1.2 K/uL (0.8-4.0); LYMPHOCYTE % 16.5 %; MCH 28.9 pg (27.0-34.0); MCHC 31.5 gm/dL (32.0-36.5); MCV 91.7 fl (83.0-98.0); MONOCYTE # 0.9 K/uL (0.0-1.0); MONOCYTE % 11.3 %; MPV 10.7 fl (9.4-12.4); NEUTROPHIL # (ANC) 4.8 K/uL (1.4-9.0); NEUTROPHIL % 63.4 %; NRBC % 0 /100WBC (0-0.00); PLATELET COUNT 254 K/uL (150-450); RBC 4.22 M/uL (3.50-5.50); RDW-CV 14.4 % (11.9-14.6); WBC 7.5 K/uL (4.0-11.0)
[2016-07-24 04:56] LABS: ALBUMIN 2.7 gm/dL (3.5-5.0); ANION GAP 11.6 (10.0-19.0); CALCIUM 8.2 mg/dL (8.5-10.5); CREATININE 1.9 mg/dL (0.6-1.3); MAGNESIUM 2.5 mg/dL (1.3-2.6); PHOSPHORUS 2.5 mg/dL (2.5-4.9); POTASSIUM 3.6 mMol/L (3.7-5.1)
[2016-07-25 02:04] LABS: HEMATOCRIT 37.3 % (37.0-53.0)
[2016-07-25 04:16] LABS: BASOPHIL # 0.1 K/uL (0.0-0.2); EOSINOPHIL # 0.6 K/uL (0.0-0.5); EOSINOPHIL % 9.9 %; HEMATOCRIT 36.9 % (37.0-53.0); HEMOGLOBIN 11.9 g/dL (11.0-16.0); IMMATURE GRANULOCYTE # 0.1 K/uL (0.0-0.3); IMMATURE GRANULOCYTE % 1.5 %; LYMPHOCYTE # 1.1 K/uL (0.8-4.0); LYMPHOCYTE % 17.6 %; MCH 29.5 pg (27.0-34.0); MCHC 32.2 gm/dL (32.0-36.5); MCV 91.3 fl (83.0-98.0); MONOCYTE # 0.7 K/uL (0.0-1.0); MONOCYTE % 11.2 %; MPV 10.6 fl (9.4-12.4); NEUTROPHIL # (ANC) 3.6 K/uL (1.4-9.0); NEUTROPHIL % 58.8 %; NRBC % 0.7 /100WBC (0-0.00); PLATELET COUNT 247 K/uL (150-450); RBC 4.04 M/uL (3.50-5.50); RDW-CV 14.5 % (11.9-14.6); WBC 6.1 K/uL (4.0-11.0)
[2016-07-25 04:39] LABS: ALBUMIN 2.5 gm/dL (3.5-5.0); ANION GAP 13.2 (10.0-19.0); CALCIUM 7.7 mg/dL (8.5-10.5); CREATININE 1.8 mg/dL (0.6-1.3); MAGNESIUM 2.3 mg/dL (1.3-2.6); PHOSPHORUS 2.5 mg/dL (2.5-4.9); POTASSIUM 4.2 mMol/L (3.7-5.1)
[2016-07-26 05:09] LABS: BASOPHIL # 0.1 K/uL (0.0-0.2); EOSINOPHIL # 0.6 K/uL (0.0-0.5); EOSINOPHIL % 10.6 %; HEMATOCRIT 38.4 % (37.0-53.0); HEMOGLOBIN 12.4 g/dL (11.0-16.0); IMMATURE GRANULOCYTE # 0.1 K/uL (0.0-0.3); IMMATURE GRANULOCYTE % 1.7 %; LYMPHOCYTE # 1.2 K/uL (0.8-4.0); LYMPHOCYTE % 20.1 %; MCHC 32.3 gm/dL (32.0-36.5); MCV 89.9 fl (83.0-98.0); MONOCYTE # 0.6 K/uL (0.0-1.0); MONOCYTE % 10.6 %; MPV 10.6 fl (9.4-12.4); NEUTROPHIL # (ANC) 3.4 K/uL (1.4-9.0); NRBC % 0.3 /100WBC (0-0.00); PLATELET COUNT 268 K/uL (150-450); RBC 4.27 M/uL (3.50-5.50); RDW-CV 14.5 % (11.9-14.6)
[2016-07-26 05:23] LABS: ALBUMIN 2.7 gm/dL (3.5-5.0); ANION GAP 13.5 (10.0-19.0); CALCIUM 8.1 mg/dL (8.5-10.5); CREATININE 1.6 mg/dL (0.6-1.3); MAGNESIUM 2.1 mg/dL (1.3-2.6); PHOSPHORUS 2.7 mg/dL (2.5-4.9); POTASSIUM 4.5 mMol/L (3.7-5.1)
[2016-07-27 04:31] LABS: BASOPHIL # 0.1 K/uL (0.0-0.2); BASOPHIL % 0.6 %; EOSINOPHIL # 0.7 K/uL (0.0-0.5); EOSINOPHIL % 9.1 %; HEMATOCRIT 39.2 % (37.0-53.0); HEMOGLOBIN 12.4 g/dL (11.0-16.0); IMMATURE GRANULOCYTE % 0.4 %; LYMPHOCYTE # 1.6 K/uL (0.8-4.0); LYMPHOCYTE % 19.7 %; MCHC 31.6 gm/dL (32.0-36.5); MCV 91.8 fl (83.0-98.0); MONOCYTE # 0.9 K/uL (0.0-1.0); MONOCYTE % 11.6 %; MPV 10.2 fl (9.4-12.4); NEUTROPHIL # (ANC) 4.7 K/uL (1.4-9.0); NEUTROPHIL % 58.6 %; NRBC % 0 /100WBC (0-0.00); PLATELET COUNT 297 K/uL (150-450); RBC 4.27 M/uL (3.50-5.50); RDW-CV 14.4 % (11.9-14.6)
[2016-07-27 04:46] LABS: ANION GAP 10.8 (10.0-19.0); CALCIUM 8.7 mg/dL (8.5-10.5); CREATININE 1.6 mg/dL (0.6-1.3); POTASSIUM 3.8 mMol/L (3.7-5.1)
[2016-07-28 04:35] LABS: BASOPHIL # 0.1 K/uL (0.0-0.2); BASOPHIL % 0.8 %; EOSINOPHIL # 0.6 K/uL (0.0-0.5); EOSINOPHIL % 8.8 %; HEMATOCRIT 41.1 % (37.0-53.0); HEMOGLOBIN 13.4 g/dL (11.0-16.0); IMMATURE GRANULOCYTE # 0.1 K/uL (0.0-0.3); IMMATURE GRANULOCYTE % 1.4 %; LYMPHOCYTE # 1.3 K/uL (0.8-4.0); LYMPHOCYTE % 20.1 %; MCH 29.1 pg (27.0-34.0); MCHC 32.6 gm/dL (32.0-36.5); MCV 89.2 fl (83.0-98.0); MONOCYTE # 0.7 K/uL (0.0-1.0); MPV 10.1 fl (9.4-12.4); NEUTROPHIL # (ANC) 3.8 K/uL (1.4-9.0); NEUTROPHIL % 58.9 %; NRBC % 0 /100WBC (0-0.00); PLATELET COUNT 308 K/uL (150-450); RBC 4.61 M/uL (3.50-5.50); RDW-CV 14.5 % (11.9-14.6); WBC 6.5 K/uL (4.0-11.0)
[2016-07-28 04:54] LABS: ALBUMIN 3.2 gm/dL (3.5-5.0); ANION GAP 12.9 (10.0-19.0); CALCIUM 8.8 mg/dL (8.5-10.5); CREATININE 1.6 mg/dL (0.6-1.3); MAGNESIUM 1.9 mg/dL (1.3-2.6); PHOSPHORUS 2.8 mg/dL (2.5-4.9); POTASSIUM 3.9 mMol/L (3.7-5.1)
[2016-07-30 05:00] LABS: BASOPHIL % 0.5 %; EOSINOPHIL # 0.6 K/uL (0.0-0.5); EOSINOPHIL % 8.5 %; HEMATOCRIT 39.4 % (37.0-53.0); HEMOGLOBIN 12.7 g/dL (11.0-16.0); IMMATURE GRANULOCYTE % 0.5 %; LYMPHOCYTE # 1.7 K/uL (0.8-4.0); LYMPHOCYTE % 23.1 %; MCH 29.3 pg (27.0-34.0); MCHC 32.2 gm/dL (32.0-36.5); MONOCYTE # 0.9 K/uL (0.0-1.0); MONOCYTE % 11.9 %; MPV 10.2 fl (9.4-12.4); NEUTROPHIL # (ANC) 4.1 K/uL (1.4-9.0); NEUTROPHIL % 55.5 %; NRBC % 0 /100WBC (0-0.00); PLATELET COUNT 308 K/uL (150-450); RBC 4.33 M/uL (3.50-5.50); RDW-CV 14.5 % (11.9-14.6); WBC 7.3 K/uL (4.0-11.0)
[2016-07-31 05:00] LABS: ANION GAP 14.8 (10.0-19.0); CALCIUM 8.6 mg/dL (8.5-10.5); CREATININE 1.7 mg/dL (0.6-1.3)
[2016-07-31 05:02] LABS: POTASSIUM 4.8 mMol/L (3.7-5.1)
== END 2016-08-01 10:53 | disposition swing bed (61) | DRG 101 ==
LOC: GNTU 13:14
PROVIDERS: Family Medicine; Internal Medicine; Internal Medicine Cardiovascular Disease; Internal Medicine Interventional Cardiology; ADMIT Internal Medicine
PROC: 0DBN8ZX Excision of Sigmoid Colon, Via Natural or Artificial Opening Endoscopic, Diagnostic (ICD-10-PCS; principal; 2016-07-28)
DX: R56.9 Unspecified convulsions (principal); N17.9 Acute kidney failure, unspecified; J96.10 Chronic respiratory failure, unspecified whether with hypoxia or hypercapnia; M62.82 Rhabdomyolysis; E11.22 Type 2 diabetes mellitus with diabetic chronic kidney disease; N18.4 Chronic kidney disease, stage 4 (severe); I27.2 Other secondary pulmonary hypertension; I69.351 Hemiplegia and hemiparesis following cerebral infarction affecting right dominant side; K92.1 Melena; I48.0 Paroxysmal atrial fibrillation; Z79.01 Long term (current) use of anticoagulants; I12.9 Hypertensive chronic kidney disease with stage 1 through stage 4 chronic kidney disease, or unspecified chronic kidney disease; Z79.4 Long term (current) use of insulin; E66.9 Obesity, unspecified; Z68.37 Body mass index [BMI] 37.0-37.9, adult; G47.33 Obstructive sleep apnea (adult) (pediatric); E87.6 Hypokalemia; K64.4 Residual hemorrhoidal skin tags; K62.89 Other specified diseases of anus and rectum; R05 Cough; E11.40 Type 2 diabetes mellitus with diabetic neuropathy, unspecified; I71.2 Thoracic aortic aneurysm, without rupture
CPT/HCPCS: J0360; J1610; J1644; J2001; J2405; J7030

== ENCOUNTER → 2016-07-22 | Outpatient (CLI) | payer MEDICARE ==
[~2016-07-22] MED LIST: AFRIN) (GENASAL15 ML NOSE; ALLEGRA60 MG PO; CORDARONE,PACE200 MG PO; COREG25 MG PO; FLOMAX0.4 MG PO; HYDRODIURIL25 MG PO; LANTUS SOL100 UNIT/1 SUB-Q; NEURONTIN300 MG PO; NORCO 5-325 TA1 EACH PO; NORVASC5 MG PO; NOVOLOG FL100 UNIT/1 SUB-Q; PRADAXA150 MG PO; PRINIVIL (ZESTR20 MG PO; PROTONIX40 MG PO; PROZAC40 MG PO; RANITIDINE HCL150 M1 PO; SINGULAIR10 MG PO; TRICOR 160 MG160 MG PO
== END | disposition disaster alternative care site (69) ==
LOC: GAIR 12:12
DX: R56.9 Unspecified convulsions (principal); G20 Parkinson's disease; G47.30 Sleep apnea, unspecified; I12.9 Hypertensive chronic kidney disease with stage 1 through stage 4 chronic kidney disease, or unspecified chronic kidney disease; N18.3 Chronic kidney disease, stage 3 (moderate); I48.2 Chronic atrial fibrillation; E10.40 Type 1 diabetes mellitus with diabetic neuropathy, unspecified; F32.9 Major depressive disorder, single episode, unspecified; Z79.4 Long term (current) use of insulin; Z79.891 Long term (current) use of opiate analgesic; Z79.01 Long term (current) use of anticoagulants; Z79.899 Other long term (current) drug therapy; Z88.8 Allergy status to other drugs, medicaments and biological substances
CPT/HCPCS: A0422; A0431; A0436